=== PATIENT | male | born 1975 | race Caucasian/White ===

== ENCOUNTER 2017-03-28 11:39 | Emergency (ER) | payer OTHER ==
[~2017-03-28] VITALS: Ht 177.8 cm; Wt 156.8 kg
[~2017-03-28 11:39] MED LIST: HCTZ25 PO; OXYC-176 PO; PRI20 PO
[2017-03-28] MEDS ORDERED: 0.9% Sodium Chloride 1,000 ML IV ONE (11:41)
[2017-03-28] MEDS ORDERED: cefTRIAXone Inj 2,000 MG in Dextrose 5% Minibag Plus 50 ML IV ONE (11:45)
[2017-03-28 11:47] VITALS: BP 184/118; PULSE 100; RESP 18; O2SAT 99
--- NOTE | 2017-03-28 11:57 | ED.REPORT ---
HPI-General Illness Date of Service Mar 28, 2017 ED Provider: Orlando Lopez MD 41 y/o male with a hx of chronic back pain presents to the ED complaining of myalgia, onset 2 days ago.Associated sx include headache, neck pain, back pain, diaphoresis, chills and fever in low 90s. He denies sore throat, diarrhea, vomiting, abdominal pain, dysuria and rash.The pt states he took a couple of Gabapentin before bed 2 days ago but felt "woozy" at work. This morning he took Percocet due to worsening sx. He states his current sx are similar to his sx when he was diagnosed with a UTI couple of years ago. Nursing Notes Stated Complaint: NAUSEA/PAIN IN NECK Chief Complaint: FLU/Cold Symptoms Nursing Notes Reviewed: Yes Allergies: Coded Allergies: No Known Allergies (Unverified Allergy, Unknown, 08/13/14) Scheduled Hydrochlorothiazide-Expunged, Do Not Renew! (Hydrochlorothiazide-Expunged, Do Not Renew!) 25 Mg Tablet 12.5 MG PO DAILY Oxycodone/APAP-Expunged Drug, Do Not Renew! (Percocet 5/325-Expunged Drug, Do Not Renew!) 1 Each Tablet 1 TAB PO Q4HP Miscellaneous Medications Omeprazole-Expunged Drug, Do Not Renew! (Omeprazole-Expunged Drug, Do Not Renew! ) 20 Mg Capcr 20 MG PO General Time Seen by MD: 11:56 Chief Complaint Other (myalgia) Hx Obtained From: Patient Arrived By: Walk-in Sudden in Onset?: Yes Onset Occurred: 2 days ago Symptom Duration: Since onset Location: : Head: Neck Quality: Painful Radiation: : Does not radiate Severity: Current: Moderate Severity: Maximum: Moderate Recent Healthcare: No recent doctor visit Similar Sx Previous: No Past Medical History Past Medical History PMFD [place], chronic back pain on percocet Fatty liver herpes Reports: Hypertension (not on medications) Smoking History Never Smoker Social History 5 and 7 year old children in home, works as enigineer Alcohol Use: "Social" Drug Use: Denies drug use Ambulatory Status Independent Review of Systems Denies: sore throat Full Review of Systems Constitutional: Reports: Chills GI: Denies: Abdominal pain, Diarrhea, Vomiting Male: Denies Dysuria Musculoskeletal: Reports: Back pain, Myalgia, Neck pain Skin: Reports Diaphoresis, Denies Rash Neurologic: Reports: Headache Complete sys rev & neg: except as marked. Physical Exam Vital Signs Vital Signs Date Time Temp Pulse Resp B/P Pulse Ox O2 Delivery O2 Flow Rate FiO2 03/28/17 13:17 36.8 85 20 144/87 98 Room Air 03/28/17 11:47 36.8 100 18 184/118 99 Room Air Initial VS: Reviewed Head / Eyes: Atraumatic, Normocephalic Neck: Supple, Non-tender, Full range of motion Respiratory: Breath sounds normal, Clear to auscultation, No respiratory distress Cardiovascular: Regular rate & rhythm, Heart sounds normal Abdomen / GI: Soft, Non-tender Extremities: Vascular intact, Neuro intact, No swelling, No tenderness Skin: Warm, Dry, No cyanosis Neurologic: Alert, Oriented, Nonfocal General/Constitutional: Awake, Alert, Cooperative Interpretation & Diagnostics Lab Results Interpretation Result Diagram: 03/28/17 1315 03/28/17 1315 Test 03/28/17 13:15 03/28/17 13:33 White Blood Count 5.3th/mm3 (3.8-10.1) Red Blood Count 5.32mil/mm3 (4.40-5.80) Hemoglobin 16.1g/dL (13.8-17.2) Hematocrit 48.5% (41.0-50.0) Mean Corpuscular Volume 91.2fL (81-100) Mean Corpuscular Hemoglobin 30.3pg (27.0-35.0) Mean Corpuscular Hemoglobin Concent 33.2% (32.0-37.0) Red Cell Distribution Width 12.0% (12.3-15.4) Platelet Count 205bil/L (150-400) Neutrophils (%) (Auto) 53.0% (40-74) Lymphocytes (%) (Auto) 21.1% (14-46) Monocytes (%) (Auto) 24.1% (4-12) Eosinophils (%) (Auto) 0.8% (0-5) Basophils (%) (Auto) 0.6% (0-3) Sodium Level 138mEq/L (134-144) Potassium Level 4.3mEq/L (3.5-5.2) Chloride Level 100mEq/L (97-108) Carbon Dioxide Level 26mmol/L (18-29) Blood Urea Nitrogen 15mg/dL (6-24) Creatinine 0.80mg/dL (0.76-1.27) Estimat Glomerular Filtration Rate 114mL/min (>59) Glucose Level 121mg/dL (60-99) Lactic Acid Level 1.5mmol/L (0.4-2.0) Calcium Level 9.5mg/dL (8.5-10.1) Total Bilirubin 0.2mg/dL (0.0-1.2) Aspartate Amino Transf (AST/SGOT) 41U/L (0-50) Alanine Aminotransferase (ALT/SGPT) 78U/L (0-44) Alkaline Phosphatase 74U/L (25-150) Total Protein 7.4g/dL (6.4-8.4) Albumin 4.3g/dL (3.4-5.0) Urine Color Yellow (YELLOW) Urine Appearance Clear (CLEAR,HAZY) Urine pH 5.5 (5.0-8.0) Urine Specific [place] 1.020 (1.003-1.035) Urine Protein Negativemg/dL (NEG,TRACE) Urine Glucose (UA) Negativemg/dL (NEGATIVE) Urine Ketones Negativemg/dL (NEGATIVE) Urine Occult Blood Negative (NEGATIVE) Urine Nitrite Negative (NEGATIVE) Urine Bilirubin Negative (NEGATIVE) Urine Urobilinogen Normalmg/dL (NORMAL) Urine Leukocyte Esterase Negative (NEGATIVE) Urine RBC 0-2/hpf (0-2) Urine WBC 0-5/hpf (0-5) Urine Epithelial Cells Occasional/hpf (NONE-MOD) Urine Crystals None seen (NONE SEEN) Urine Bacteria None/hpf (NONE-FEW) Urine Hyaline Casts None/lpf (NONE) Urine Granular Casts None seen (NONE SEEN) Urine Waxy Casts None seen (NONE SEEN) Urine Red Blood Cell Casts None seen (NONE SEEN) Urine White Blood Cell Casts None seen (NONE SEEN) Urine Mucus Present (None Seen) Urine Trichomonas None seen (NONE SEEN) Urine Yeast None (NONE SEEN) Urinalysis Comment None Urine Culture Reflexed Not indicated X-Ray Chest Interpretation Chest Xray Interpretation: IMPRESSION: Negative chest. No acute cardiopulmonary process is evident. Dictated by: Jero Regalado M.D. on 03/28/2017 at 12:33 Approved by: Jero Regalado M.D. on 03/28/2017 at 12:33 View: Portable, 1 view Interpretation / Wet Read by: Interpret - Radiologist Re-Eval/Medical Decision Source of Hx: Old records Time of Eval: 13:54 Patient Status: Condition improved, Mild relief Re-Evaluation/Progress Note: Rechecked pt. Discussed lab results, imaging results, diagnosis and plan to discharge. Pt understands and agrees with the plan. F/U instructions and RTER warning given. All questions addressed. Counseled Regarding: Diagnosis, Lab results, Need for follow-up, When/why to return to ED Discharge & Departure Primary Impression: Viral infection, unspecified Disposition: Home Discharge Condition All VS Reviewed: Yes Condition: Stable Patient Instructions: Viral Syndrome (ED) Additional Instructions: No dangerous bacterial infection is discovered or suspected at this time. I do not believe you have meningitis or pneumonia or a kidney/bladder infection. I do believe that you are suffering from a significant viral infection that is the source of the significant symptoms you are experiencing. There is no definitive treatment for this. I recommend symptomatic therapies such as copious oral hydration, increased rest and Tylenol up to 1000 mg every 6 hours ( maximum 4000 mg every 24 hours) and/or ibuprofen 800 mg every 8 hours. Follow- up right away for worsening symptoms, otherwise follow up next week at the clinic as planned. Referrals: Yoel Potter MD (PCP) Scribe Attestation Portions of this note were transcribed by Hugh Shaikh. I, , personally performed the history, physical exam and medical decision- making;I reviewed and confirmed the accuracy of the information in the transcribed note. Signed by Corin Dinh. 03/28/17 13:55 copies to: Yoel Potter MD, Kirk H MD Mar 28, 2017 11:57 Hugh Shaikh Mar 28, 2017 12:45
--- NOTE | 2017-03-28 12:35 | DRSVH ---
PROCEDURE: X-RAY CHEST ONE VIEW, PORTABLE ([id number]) INDICATIONS: fever TECHNIQUE: One view of the chest was acquired. COMPARISON: [facility], CR, CHEST 2VW, 01/20/2013, 3:19. FINDINGS: Surgical changes and devices: None. Lungs and pleura: No pleural effusions or pneumothorax. Lungs are clear. Mediastinum: Mediastinal contours appear normal. Heart size is normal. Bones and chest wall: No suspicious bony lesions. Overlying soft tissues appear unremarkable. IMPRESSION: Negative chest. No acute cardiopulmonary process is evident. Dictated by: Jero Regalado M.D. on 03/28/2017 at 12:33 Approved by: Jero Regalado M.D. on 03/28/2017 at 12:33
[2017-03-28 13:17] VITALS: BP 144/87; PULSE 85; RESP 20; O2SAT 98
[2017-03-28 13:31] LABS: BASOPHILS % (AUTO) 0.6 % (0-3); EOSINOPHILS % (AUTO) 0.8 % (0-5); MONOCYTES % (AUTO) 24.1 % (4-12); Mean Corpuscular Hemoglobin 30.3 pg (27.0-35.0); Mean Corpuscular Volume 91.2 fL (81-100); Platelet Count 205 bil/L (150-400)
[2017-03-28 13:47] LABS: APPEARANCE,URINE CLEAR (CLEAR,HAZY); COLOR,URINE YELLOW (YELLOW); OCCULT BLOOD,URINE NEGATIVE (NEGATIVE); PH,URINE 5.5 (5.0-8.0); UROBILINOGEN,URINE NORMAL (NORMAL)
[2017-03-28 14:26] VITALS: BP 153/98; PULSE 88; RESP 20; O2SAT 98
== END 2017-03-28 14:25 | disposition home or self-care (01) ==
LOC: SED 11:39
DX: B34.9 Viral infection, unspecified (principal); I10 Essential (primary) hypertension; M54.9 Dorsalgia, unspecified; G89.29 Other chronic pain
CPT/HCPCS: 36415; 71010; 80053; 81000; 83605; 85025; 87040; 96360; 99284; J7030